=== PATIENT | female | born 1945 | race Caucasian/White ===

== ENCOUNTER 2022-03-04 19:52 | Inpatient (IN) | payer BC, MEDICARE ==
[~2022-03-04] VITALS: Ht 167.6 cm; Wt 87.0 kg
[2022-03-04] MEDS ORDERED: PANTOPRAZOLE 40MG VIAL IV ONE (20:10)
[2022-03-04] MEDS ORDERED: NS 1,000 ML IV ONE (20:15)
[2022-03-04 20:16] LABS: BASO % 0.2 % (0.0-1.0); EOS % 0.3 % (0.0-3.0); LYMPH # 1.7 10^3/uL (1.5-5.0); LYMPH % 16.6 % (24.0-44.0); MEAN CORPUSCULAR HEMOGLOBIN 33.2 pg (27.0-33.0); MEAN CORPUSCULAR HGB CONC 32.8 g/dl (32.0-36.5); MONO # 0.7 10^3/uL (0.0-0.8); MONO % 6.8 % (2.0-8.0); NEUTROPHILS # 7.7 10^3/uL (1.5-8.5); NEUTROPHILS % 75.8 % (36.0-66.0); PLATELET COUNT, AUTOMATED 213 10^3/uL (150-450); RED BLOOD COUNT 1.99 10^6/uL (4.00-5.40); WHITE BLOOD COUNT 10.1 10^3/uL (4.0-10.0)
[2022-03-04 20:24] LABS: HEMATOCRIT 20.1 % (36.0-47.0)
[2022-03-04 20:25] LABS: HEMOGLOBIN 6.6 g/dl (12.0-15.5)
[2022-03-04 20:33] LABS: INR 1.6; PROTHROMBIN TIME 19.5 SECONDS (12.7-14.5)
[2022-03-04 20:34] LABS: PARTIAL THROMBOPLASTIN TIME 33.1 SECONDS (25.9-37.0)
[2022-03-04 20:52] LABS: CK-MB VALUE MASS 2.9 NG/ML (<3.6); MB/CK RELATIVE INDEX 2.66 (< OR =4)
[2022-03-04 20:57] LABS: ALBUMIN 2.6 GM/DL (3.2-5.2); ALT/SGPT 15 U/L (12-78); BILIRUBIN,DIRECT < 0.1 MG/DL (0.0-0.2); BILIRUBIN,TOTAL 0.3 MG/DL (0.2-1.0); BLOOD UREA NITROGEN 60 MG/DL (7-18); CALCIUM LEVEL 8.6 MG/DL (8.8-10.2); CARBON DIOXIDE LEVEL 27 MEQ/L (21-32); CHLORIDE LEVEL 105 MEQ/L (98-107); CREATININE FOR GFR 1.81 MG/DL (0.55-1.30); FERRITIN 23 NG/ML (8-252); GLOMERULAR FILTRATION RATE 28.9 (>39); GLUCOSE, FASTING 140 MG/DL (70-100); IRON (FE) 75 UG/DL (50-170); LIPASE 207 U/L (73-393); PERCENT SATURATION 25.4 % (13.2-45.0); POTASSIUM SERUM 3.7 MEQ/L (3.5-5.1); SODIUM LEVEL 142 MEQ/L (136-145); TOTAL IRON BINDING CAPACITY 295 UG/DL (250-450); TOTAL PROTEIN 5.3 GM/DL (6.4-8.2)
[2022-03-04 21:28] VITALS: BP 90/47
[2022-03-04 21:42] VITALS: BP 96/52
[2022-03-04 21:57] VITALS: BP 113/55
[2022-03-04] MEDS ORDERED: TRANEXAMIC ACID INJection 1,000 MG in NS 100 ML IV ONE (22:00)
[2022-03-04 22:12] VITALS: BP 119/58
[2022-03-04 22:26] VITALS: BP 121/58
[2022-03-04 22:40] VITALS: BP 119/59
[2022-03-04] MEDS ORDERED: ONDANSETRON 4MG/2ML VIAL IV PRN (22:50)
[2022-03-04] MEDS: PANTOPRAZOLE 40MG VIAL IV SCH (23:26)
[2022-03-04] MEDS: LR 1,000 ML IV SCH (23:26)
[2022-03-04 23:34] LABS: RSV AMPLIFICATION NEGATIVE (NEGATIVE)
[2022-03-05] VITALS (33 sets, daily range): BP systolic 71–134; BP diastolic 33–74
[2022-03-05] MEDS ORDERED: RHOP0.02 OU (02:27)
[2022-03-05] MEDS ORDERED: ELIQ5TAB PO (02:27)
[2022-03-05] MEDS ORDERED: AMLO1TAB24 PO (02:27)
[2022-03-05] MEDS ORDERED: METO1TAB87 PO (02:27)
[2022-03-05] MEDS ORDERED: VITMTA PO (02:27)
[2022-03-05] MEDS ORDERED: VALS320T3 PO (02:27)
[2022-03-05] MEDS ORDERED: TRAV2.5D OU (02:27)
[2022-03-05] MEDS ORDERED: ATOR1TAB21 PO (02:27)
[2022-03-05] MEDS ORDERED: BIOT1000 PO (02:27)
[2022-03-05] MEDS ORDERED: SYNT75TA PO (02:27)
[2022-03-05] MEDS ORDERED: PREG100CA PO (02:27)
[2022-03-05] MEDS ORDERED: HOME MED LIST COMPLETE! XX SCH (02:30)
[2022-03-05 03:56] LABS: MEAN CORPUSCULAR HEMOGLOBIN 31.7 pg (27.0-33.0); MEAN CORPUSCULAR HGB CONC 33.3 g/dl (32.0-36.5); PLATELET COUNT, AUTOMATED 169 10^3/uL (150-450); RED BLOOD COUNT 2.21 10^6/uL (4.00-5.40); WHITE BLOOD COUNT 11.5 10^3/uL (4.0-10.0)
[2022-03-05 04:04] LABS: CALCIUM LEVEL 7.5 MG/DL (8.8-10.2); CREATININE FOR GFR 1.37 MG/DL (0.55-1.30); GLOMERULAR FILTRATION RATE 39.9 (>39); POTASSIUM SERUM 4.1 MEQ/L (3.5-5.1)
[2022-03-05] MEDS: LR 1,000 ML IV SCH ×2 (08:36→17:44)
[2022-03-05] MEDS: PANTOPRAZOLE 40MG VIAL IV SCH ×2 (09:47→21:06)
[2022-03-05 09:54] LABS: HEMATOCRIT 27.5 % (36.0-47.0); MEAN CORPUSCULAR HEMOGLOBIN 31.4 pg (27.0-33.0); MEAN CORPUSCULAR HGB CONC 33.8 g/dl (32.0-36.5); MEAN CORPUSCULAR VOLUME 92.9 fl (80.0-96.0); PLATELET COUNT, AUTOMATED 124 10^3/uL (150-450); RED BLOOD COUNT 2.96 10^6/uL (4.00-5.40); WHITE BLOOD COUNT 14.2 10^3/uL (4.0-10.0)
[2022-03-05 09:58] LABS: HEMOGLOBIN 9.3 g/dl (12.0-15.5)
[2022-03-05] MEDS ORDERED: propofoL 200 MG/20 ML VIAL As Ordered ONE (14:10)
[2022-03-05] MEDS ORDERED: LIDOCAINE 2% 100MG/5ML SDV (FOR ANES.) As Ordered ONE (14:10)
[2022-03-05] MEDS: ACETAMINOPHEN TAB 650MG DOSE (2X325MG) PO PRN (16:01)
[2022-03-05] MEDS: SUCRALFATE 1 GM TAB PO SCH ×2 (17:43→21:06)
[2022-03-05] MEDS: PREGABALIN 100 MG CAP (LYRICA) PO SCH (21:06)
[2022-03-06] VITALS (24 sets, daily range): BP systolic 82–160; BP diastolic 42–73
[2022-03-06] MEDS: LEVOTHYROXINE 75MCG TABLET (0.075MG) PO SCH (06:36)
[2022-03-06] MEDS: LR 1,000 ML IV SCH ×2 (06:36→20:26)
[2022-03-06 07:50] LABS: HEMATOCRIT 22.6 % (36.0-47.0); HEMOGLOBIN 7.6 g/dl (12.0-15.5); MEAN CORPUSCULAR HEMOGLOBIN 30.9 pg (27.0-33.0); MEAN CORPUSCULAR HGB CONC 33.6 g/dl (32.0-36.5); MEAN CORPUSCULAR VOLUME 91.9 fl (80.0-96.0); PLATELET COUNT, AUTOMATED 135 10^3/uL (150-450); RED BLOOD COUNT 2.46 10^6/uL (4.00-5.40); WHITE BLOOD COUNT 10.2 10^3/uL (4.0-10.0)
[2022-03-06] MEDS: PREGABALIN 100 MG CAP (LYRICA) PO SCH ×2 (08:08→21:19)
[2022-03-06] MEDS: PANTOPRAZOLE 40MG VIAL IV SCH ×2 (08:08→21:19)
[2022-03-06] MEDS: SUCRALFATE 1 GM TAB PO SCH ×4 (08:08→21:19)
[2022-03-06 08:18] LABS: ALBUMIN 2.2 GM/DL (3.2-5.2); ALT/SGPT 14 U/L (12-78); BILIRUBIN,TOTAL 0.5 MG/DL (0.2-1.0); BLOOD UREA NITROGEN 43 MG/DL (7-18); CALCIUM LEVEL 8.1 MG/DL (8.8-10.2); CARBON DIOXIDE LEVEL 29 MEQ/L (21-32); CHLORIDE LEVEL 112 MEQ/L (98-107); CREATININE FOR GFR 0.85 MG/DL (0.55-1.30); GLOMERULAR FILTRATION RATE > 60.0 (>39); GLUCOSE, FASTING 104 MG/DL (70-100); POTASSIUM SERUM 3.6 MEQ/L (3.5-5.1); SODIUM LEVEL 146 MEQ/L (136-145); TOTAL PROTEIN 4.3 GM/DL (6.4-8.2)
[2022-03-06 22:22] LABS: HEMATOCRIT 36.8 % (36.0-47.0); MEAN CORPUSCULAR HEMOGLOBIN 30.7 pg (27.0-33.0); MEAN CORPUSCULAR HGB CONC 33.2 g/dl (32.0-36.5); MEAN CORPUSCULAR VOLUME 92.7 fl (80.0-96.0); PLATELET COUNT, AUTOMATED 138 10^3/uL (150-450); RED BLOOD COUNT 3.97 10^6/uL (4.00-5.40); WHITE BLOOD COUNT 12.6 10^3/uL (4.0-10.0)
[2022-03-06 22:33] LABS: HEMOGLOBIN 12.2 g/dl (12.0-15.5)
[2022-03-07] VITALS (17 sets, daily range): BP systolic 96–141; BP diastolic 47–99
[2022-03-07] MEDS: LEVOTHYROXINE 75MCG TABLET (0.075MG) PO SCH (05:40)
[2022-03-07] MEDS: SUCRALFATE 1 GM TAB PO SCH ×4 (07:27→20:04)
[2022-03-07] MEDS: PREGABALIN 100 MG CAP (LYRICA) PO SCH ×2 (08:29→20:03)
[2022-03-07] MEDS: PANTOPRAZOLE 40MG VIAL IV SCH (08:29)
[2022-03-07] MEDS ORDERED: METOPROLOL TART 25 MG TABLET PO SCH (09:00)
[2022-03-07 09:28] LABS: HEMATOCRIT 29.7 % (36.0-47.0); MEAN CORPUSCULAR HEMOGLOBIN 31.2 pg (27.0-33.0); MEAN CORPUSCULAR HGB CONC 34.3 g/dl (32.0-36.5); MEAN CORPUSCULAR VOLUME 90.8 fl (80.0-96.0); PLATELET COUNT, AUTOMATED 145 10^3/uL (150-450); RED BLOOD COUNT 3.27 10^6/uL (4.00-5.40); WHITE BLOOD COUNT 7.7 10^3/uL (4.0-10.0)
[2022-03-07 09:32] LABS: HEMOGLOBIN 10.2 g/dl (12.0-15.5)
[2022-03-07] MEDS: PANTOPRAZOLE 40MG TAB (PROTONIX) PO SCH ×2 (09:34→20:03)
[2022-03-07 09:47] LABS: BLOOD UREA NITROGEN 23 MG/DL (7-18); CALCIUM LEVEL 8.2 MG/DL (8.8-10.2); CARBON DIOXIDE LEVEL 30 MEQ/L (21-32); CHLORIDE LEVEL 110 MEQ/L (98-107); CREATININE FOR GFR 0.77 MG/DL (0.55-1.30); GLOMERULAR FILTRATION RATE > 60.0 (>39); GLUCOSE, FASTING 113 MG/DL (70-100); MAGNESIUM LEVEL 1.7 MG/DL (1.8-2.4); POTASSIUM SERUM 3.2 MEQ/L (3.5-5.1); SODIUM LEVEL 145 MEQ/L (136-145)
[2022-03-07] MEDS: POTASSIUM CHLORIDE 10MEQ SR TABLET PO SCH ×3 (10:46→14:05)
[2022-03-07] MEDS: ACETAMINOPHEN TAB 650MG DOSE (2X325MG) PO PRN (14:33)
[2022-03-07] MEDS: MULTIVITAMINS/MINERALS THERAP 1 TAB PO SCH (16:21)
[2022-03-07] MEDS: ATORVASTATIN 20 MG TAB PO SCH (20:04)
[2022-03-07] MEDS: METOPROLOL TART 12.5 MG PER 1/2 TAB PO SCH (20:04)
[2022-03-08 02:00] VITALS: BP 127/71
[2022-03-08] MEDS: LEVOTHYROXINE 75MCG TABLET (0.075MG) PO SCH (05:12)
[2022-03-08 05:33] VITALS: BP 136/64
[2022-03-08] MEDS: MULTIVITAMINS/MINERALS THERAP 1 TAB PO SCH (08:39)
[2022-03-08] MEDS: PANTOPRAZOLE 40MG TAB (PROTONIX) PO SCH ×2 (08:39→20:11)
[2022-03-08] MEDS: SUCRALFATE 1 GM TAB PO SCH ×4 (08:41→20:11)
[2022-03-08] MEDS: METOPROLOL TART 12.5 MG PER 1/2 TAB PO SCH ×2 (08:41→20:11)
[2022-03-08] MEDS: PREGABALIN 100 MG CAP (LYRICA) PO SCH ×2 (08:41→20:11)
[2022-03-08] MEDS: VALSARTAN 80 MG TAB (DIOVAN) PO SCH (10:02)
[2022-03-08 10:10] VITALS: BP 121/66
[2022-03-08 10:27] LABS: BASO % 0.2 % (0.0-1.0); EOS # 0.2 10^3/uL (0.0-0.5); HEMATOCRIT 28.3 % (36.0-47.0); HEMOGLOBIN 9.5 g/dl (12.0-15.5); LYMPH # 1.5 10^3/uL (1.5-5.0); LYMPH % 18.7 % (24.0-44.0); MEAN CORPUSCULAR HEMOGLOBIN 30.5 pg (27.0-33.0); MEAN CORPUSCULAR HGB CONC 33.6 g/dl (32.0-36.5); MONO # 0.7 10^3/uL (0.0-0.8); MONO % 8.4 % (2.0-8.0); NEUTROPHILS # 5.6 10^3/uL (1.5-8.5); NEUTROPHILS % 70.3 % (36.0-66.0); PLATELET COUNT, AUTOMATED 160 10^3/uL (150-450); RED BLOOD COUNT 3.11 10^6/uL (4.00-5.40)
[2022-03-08 11:07] LABS: ALBUMIN 2.4 GM/DL (3.2-5.2); ALT/SGPT 21 U/L (12-78); BILIRUBIN,TOTAL 0.4 MG/DL (0.2-1.0); BLOOD UREA NITROGEN 14 MG/DL (7-18); CARBON DIOXIDE LEVEL 32 MEQ/L (21-32); CHLORIDE LEVEL 107 MEQ/L (98-107); CREATININE FOR GFR 0.63 MG/DL (0.55-1.30); GLOMERULAR FILTRATION RATE > 60.0 (>39); GLUCOSE, FASTING 111 MG/DL (70-100); POTASSIUM SERUM 3.3 MEQ/L (3.5-5.1); SODIUM LEVEL 143 MEQ/L (136-145); TOTAL PROTEIN 4.6 GM/DL (6.4-8.2)
[2022-03-08 20:05] VITALS: BP 147/72
[2022-03-08] MEDS: ATORVASTATIN 20 MG TAB PO SCH (20:11)
[2022-03-08] MEDS: ACETAMINOPHEN TAB 650MG DOSE (2X325MG) PO PRN (23:49)
[2022-03-09 01:27] VITALS: BP 118/56
[2022-03-09 04:36] VITALS: BP 143/61
[2022-03-09] MEDS: LEVOTHYROXINE 75MCG TABLET (0.075MG) PO SCH (05:24)
[2022-03-09] MEDS: VALSARTAN 80 MG TAB (DIOVAN) PO SCH (08:34)
[2022-03-09] MEDS: PANTOPRAZOLE 40MG TAB (PROTONIX) PO SCH ×2 (08:35→20:48)
[2022-03-09] MEDS: METOPROLOL TART 25 MG TABLET PO SCH ×2 (08:35→20:49)
[2022-03-09] MEDS: SUCRALFATE 1 GM TAB PO SCH ×4 (08:35→20:48)
[2022-03-09] MEDS: PREGABALIN 100 MG CAP (LYRICA) PO SCH ×2 (08:35→20:48)
[2022-03-09] MEDS: MULTIVITAMINS/MINERALS THERAP 1 TAB PO SCH (08:35)
[2022-03-09 10:00] VITALS: BP 138/70
[2022-03-09 14:00] VITALS: BP 125/69
[2022-03-09 18:00] VITALS: BP 146/63
[2022-03-09 20:13] VITALS: BP 146/71
[2022-03-09] MEDS: ATORVASTATIN 20 MG TAB PO SCH (20:48)
[2022-03-09] MEDS: ACETAMINOPHEN TAB 650MG DOSE (2X325MG) PO PRN (23:28)
[2022-03-10 01:31] VITALS: BP 147/67
[2022-03-10 05:19] VITALS: BP 130/49
[2022-03-10] MEDS: LEVOTHYROXINE 75MCG TABLET (0.075MG) PO SCH (05:39)
[2022-03-10] MEDS: MULTIVITAMINS/MINERALS THERAP 1 TAB PO SCH (08:55)
[2022-03-10] MEDS: PANTOPRAZOLE 40MG TAB (PROTONIX) PO SCH (08:55)
[2022-03-10] MEDS: SUCRALFATE 1 GM TAB PO SCH ×3 (08:55→16:51)
[2022-03-10] MEDS: PREGABALIN 100 MG CAP (LYRICA) PO SCH (08:55)
[2022-03-10 08:56] VITALS: BP 143/60
[2022-03-10] MEDS: METOPROLOL TART 25 MG TABLET PO SCH (08:56)
[2022-03-10] MEDS ORDERED: amLODIPine 5 MG TAB PO SCH (09:00)
[2022-03-10] MEDS ORDERED: VALSARTAN 80 MG TAB (DIOVAN) PO SCH (09:00)
[2022-03-10 09:01] VITALS: BP 143/60
[2022-03-10 10:16] VITALS: BP 136/59
[2022-03-10 11:15] LABS: HEMATOCRIT 31.1 % (36.0-47.0); HEMOGLOBIN 10.3 g/dl (12.0-15.5); MEAN CORPUSCULAR HEMOGLOBIN 30.9 pg (27.0-33.0); MEAN CORPUSCULAR HGB CONC 33.1 g/dl (32.0-36.5); MEAN CORPUSCULAR VOLUME 93.4 fl (80.0-96.0); PLATELET COUNT, AUTOMATED 229 10^3/uL (150-450); RED BLOOD COUNT 3.33 10^6/uL (4.00-5.40); WHITE BLOOD COUNT 9.4 10^3/uL (4.0-10.0)
[2022-03-10 12:05] LABS: BLOOD UREA NITROGEN 13 MG/DL (7-18); CREATININE FOR GFR 0.64 MG/DL (0.55-1.30); GLOMERULAR FILTRATION RATE > 60.0 (>39); GLUCOSE, FASTING 115 MG/DL (70-100)
[2022-03-10 12:06] LABS: ALBUMIN 2.7 GM/DL (3.2-5.2); ALT/SGPT 22 U/L (12-78); BILIRUBIN,TOTAL 0.4 MG/DL (0.2-1.0); CARBON DIOXIDE LEVEL 30 MEQ/L (21-32); CHLORIDE LEVEL 103 MEQ/L (98-107); POTASSIUM SERUM 3.5 MEQ/L (3.5-5.1); SODIUM LEVEL 141 MEQ/L (136-145); TOTAL PROTEIN 5.9 GM/DL (6.4-8.2)
[2022-03-10] MEDS: ACETAMINOPHEN TAB 650MG DOSE (2X325MG) PO PRN (12:32)
[2022-03-10 13:59] VITALS: BP 127/58
[2022-03-10] MEDS ORDERED: SUCR1TA PO (14:15)
[2022-03-10] MEDS ORDERED: PANT40TA29 PO (14:15)
== END 2022-03-10 18:40 | disposition home health service (06) | DRG 378 ==
LOC: M ED 19:52 → M ED INP 22:50 → M ICU 03-05 00:55 → M MS5PR 03-07 17:19
PROVIDERS: ADMIT Surgery; ATTEND Surgery
PROC: 30233N1 Transfusion of Nonautologous Red Blood Cells into Peripheral Vein, Percutaneous Approach (ICD-10-PCS; principal; 2022-03-04)
PROC: 0DJ08ZZ Inspection of Upper Intestinal Tract, Via Natural or Artificial Opening Endoscopic (ICD-10-PCS; 2022-03-05)
DX: K92.0 Hematemesis (principal); D62 Acute posthemorrhagic anemia; I48.0 Paroxysmal atrial fibrillation; Z79.01 Long term (current) use of anticoagulants; I95.9 Hypotension, unspecified; M54.50 Low back pain, unspecified; G89.29 Other chronic pain; Z90.49 Acquired absence of other specified parts of digestive tract; Z92.3 Personal history of irradiation; Z92.21 Personal history of antineoplastic chemotherapy; Z86.73 Personal history of transient ischemic attack (TIA), and cerebral infarction without residual deficits; Z87.891 Personal history of nicotine dependence; I10 Essential (primary) hypertension; E03.9 Hypothyroidism, unspecified; K44.9 Diaphragmatic hernia without obstruction or gangrene; K25.9 Gastric ulcer, unspecified as acute or chronic, without hemorrhage or perforation; Z20.822 Contact with and (suspected) exposure to COVID-19; N93.9 Abnormal uterine and vaginal bleeding, unspecified; Z85.72 Personal history of non-Hodgkin lymphomas

== ENCOUNTER → 2022-04-15 | Outpatient (CLI) | payer MEDICARE ==
[~2022-04-15] MED LIST: AMLO1TAB24 PO; ATOR1TAB21 PO; BIOT1000 PO; ELIQ5TAB PO; METO1TAB87 PO; PANT40TA29 PO; POTA1TAB23; PREG100CA PO; RHOP0.02 OU; SUCR1TA PO; SYNT75TA PO; TRAV2.5D OU; VALS1TAB68; VALS320T3 PO; VITMTA PO
== END ==
LOC: M PAIN 13:30
PROVIDERS: ATTEND Nurse Practitioner Family
DX: M51.16 Intervertebral disc disorders with radiculopathy, lumbar region (principal); E78.5 Hyperlipidemia, unspecified; I10 Essential (primary) hypertension; Z87.891 Personal history of nicotine dependence; Z85.79 Personal history of other malignant neoplasms of lymphoid, hematopoietic and related tissues; Z79.01 Long term (current) use of anticoagulants; Z79.899 Other long term (current) drug therapy

== ENCOUNTER 2022-04-30 06:50 | Day surgery (SDC) | payer MEDICARE ==
[~2022-04-30] VITALS: Ht 167.6 cm; Wt 85.3 kg
[~2022-04-30 06:50] MED LIST changes: +LIDOCAINE 2% 100MG/5ML SDV (FOR ANES.) As Ordered ONE; +NS 1,000 ML IV ONE; +fentaNYL 100 MCG/2 ML INJECTION As Ordered ONE; +propofoL 200 MG/20 ML VIAL As Ordered ONE
[2022-04-30 09:14] VITALS: BP 145/77
== END 2022-04-30 09:16 | disposition home or self-care (01) ==
LOC: M OPP 06:50
PROVIDERS: ATTEND Surgery
DX: K25.0 Acute gastric ulcer with hemorrhage (principal); K31.89 Other diseases of stomach and duodenum; I10 Essential (primary) hypertension; E78.5 Hyperlipidemia, unspecified; E03.9 Hypothyroidism, unspecified; K21.9 Gastro-esophageal reflux disease without esophagitis; Z86.73 Personal history of transient ischemic attack (TIA), and cerebral infarction without residual deficits; Z92.21 Personal history of antineoplastic chemotherapy; Z79.890 Hormone replacement therapy; Z79.899 Other long term (current) drug therapy
CPT/HCPCS: 43235; J3010

== ENCOUNTER → 2022-06-10 | Outpatient (CLI) | payer MEDICARE ==
[~2022-06-10] MED LIST changes: -LIDOCAINE 2% 100MG/5ML SDV (FOR ANES.) As Ordered ONE; -NS 1,000 ML IV ONE; -fentaNYL 100 MCG/2 ML INJECTION As Ordered ONE; -propofoL 200 MG/20 ML VIAL As Ordered ONE
== END ==
LOC: M PAIN 09:30
PROVIDERS: ATTEND Anesthesiology
DX: M48.062 Spinal stenosis, lumbar region with neurogenic claudication (principal); Z86.73 Personal history of transient ischemic attack (TIA), and cerebral infarction without residual deficits; Z85.79 Personal history of other malignant neoplasms of lymphoid, hematopoietic and related tissues; M54.50 Low back pain, unspecified; E78.5 Hyperlipidemia, unspecified; I10 Essential (primary) hypertension; N28.1 Cyst of kidney, acquired; M79.606 Pain in leg, unspecified; Z79.01 Long term (current) use of anticoagulants; Z79.899 Other long term (current) drug therapy

== ENCOUNTER → 2022-07-23 | Outpatient (CLI) | payer MEDICARE | LOC: M PAIN 10:00 | PROVIDERS: ATTEND Nurse Practitioner Family | DX: M51.16 Intervertebral disc disorders with radiculopathy, lumbar region (principal); E78.5 Hyperlipidemia, unspecified; I10 Essential (primary) hypertension; N28.1 Cyst of kidney, acquired; Z85.79 Personal history of other malignant neoplasms of lymphoid, hematopoietic and related tissues; Z86.73 Personal history of transient ischemic attack (TIA), and cerebral infarction without residual deficits; Z87.891 Personal history of nicotine dependence; Z79.01 Long term (current) use of anticoagulants; Z79.890 Hormone replacement therapy; Z79.899 Other long term (current) drug therapy ==

== ENCOUNTER → 2022-10-08 | Outpatient (CLI) | payer MEDICARE | LOC: M LABSMTC 11:50 | PROVIDERS: ATTEND Anesthesiology | DX: Z11.52 Encounter for screening for COVID-19 (principal) ==

== ENCOUNTER → 2022-10-08 | Outpatient (CLI) | payer MEDICARE ==
[~2022-10-08] MED LIST changes: +ISOVUE-M 300 61% 15ML VIAL As Ordered ONE; +LIDOCAINE 1% SDV 30ML VIAL As Ordered ONE; +NORCO, ANEXSIA 5/325MG TABLET (HYDROcodone/ACETAMINOPHEN) As Ordered ONE; +methylPREDNISolone SUSP 40MG/ML 1ML VIAL (DEPO MEDROL) As Ordered ONE
== END ==
LOC: M PAIN 14:00
PROVIDERS: ATTEND Anesthesiology
DX: M51.16 Intervertebral disc disorders with radiculopathy, lumbar region (principal); E78.5 Hyperlipidemia, unspecified; I10 Essential (primary) hypertension; N28.1 Cyst of kidney, acquired; Z85.79 Personal history of other malignant neoplasms of lymphoid, hematopoietic and related tissues; Z86.73 Personal history of transient ischemic attack (TIA), and cerebral infarction without residual deficits; M79.669 Pain in unspecified lower leg; Z87.891 Personal history of nicotine dependence
CPT/HCPCS: 62323; 87635; J1030; Q9967

== ENCOUNTER → 2022-11-05 | Outpatient (CLI) | payer MEDICARE ==
[~2022-11-05] MED LIST changes: -ISOVUE-M 300 61% 15ML VIAL As Ordered ONE; -LIDOCAINE 1% SDV 30ML VIAL As Ordered ONE; -NORCO, ANEXSIA 5/325MG TABLET (HYDROcodone/ACETAMINOPHEN) As Ordered ONE; -methylPREDNISolone SUSP 40MG/ML 1ML VIAL (DEPO MEDROL) As Ordered ONE
== END ==
LOC: M PAIN 14:45
PROVIDERS: ATTEND Nurse Practitioner Family
DX: M51.16 Intervertebral disc disorders with radiculopathy, lumbar region (principal); G89.29 Other chronic pain; I10 Essential (primary) hypertension; Z86.73 Personal history of transient ischemic attack (TIA), and cerebral infarction without residual deficits; Z87.891 Personal history of nicotine dependence; Z79.01 Long term (current) use of anticoagulants; Z79.899 Other long term (current) drug therapy

== ENCOUNTER → 2023-01-12 | Outpatient (CLI) | payer MEDICARE ==
[~2023-01-12] MED LIST changes: +BUPIVACAINE HCL 0.25% 30ML VIAL As Ordered ONE; +ISOVUE-M 300 61% 15ML VIAL As Ordered ONE; +LIDOCAINE 1% SDV 30ML VIAL As Ordered ONE; +diazePAM 5MG TABLET As Ordered ONE
== END ==
LOC: M PAIN 13:00
PROVIDERS: ATTEND Anesthesiology
DX: M51.16 Intervertebral disc disorders with radiculopathy, lumbar region (principal); E78.5 Hyperlipidemia, unspecified; I10 Essential (primary) hypertension; Z87.891 Personal history of nicotine dependence; Z79.01 Long term (current) use of anticoagulants; Z79.890 Hormone replacement therapy; Z79.899 Other long term (current) drug therapy
CPT/HCPCS: 64483; J1100; Q9967